=== PATIENT | female | born 1970 | race Caucasian/White ===

== ENCOUNTER 2016-11-20 20:52 | Emergency (ER) | payer BC ==
[2016-11-20 21:00] VITALS: BP 188/86; BMI 30.9
--- NOTE | 2016-11-20 21:28 | DR.GENAD ---
HPI - PCP Primary Care Physician: APOLONIA BLACK - Complaint/Symptoms Chief Complaint:: PT C/O LT FLANK PAIN SEEN IN [place] ON THRUSDAY HAD CT IT WAS NEGATIVE PT SAW HER DR NICHOLE DX WITH ENTERNAL SHINGLES PT C/O PAIN - Nurses notes reviewed Nurses Notes Review: Yes - Source History Provided: Patient - Mode of Arrival Mode of Arrival: Ambulatory - Timing Onset of Chief Complaint: 11/16/16 Came on: Suddenly - Duration Duration: Constant Duration: Days - Severity Severity: Moderate PMH - PMH Past Medical History: Yes Past Medical History: Diabetes, Dyslipidemia, Hypertension Past Surgical History: Yes Surgical History: Cholecystectomy, Hysterectomy, Ortho Surgery - Family History History of Family Medical Conditions: Yes Family Medical History: Diabetes Mellitus, Hypertension - Social History Type of Tobacco Use: None Does any household member use tobacco: No Alcohol Use: None Do you use any recreational Drugs:: No Lives With: Family Lives Where: Home - infectious screening In the last 2 months have you had wt loss of >10#?: NO Have you had fever, night sweats or hemotysis?: No Have you traveled outside the country in the last 6 months?: No Isolation: Standard PE - Vital Signs Vitals: Temperature 98 F Pulse Rate 86 Respiratory Rate 18 Blood Pressure 188/86 O2 Sat by Pulse Oximetry 100 - Discharge Plan Disposition: [facility] After Triage Condition: Stable - Follow ups/Referrals Follow ups/Referrals: NFD,None [Primary Care Provider] - 3 days - Instructions
== END 2016-11-20 23:19 | disposition left against medical advice (07) ==
LOC: ER 21:09
DX: R10.84 Generalized abdominal pain (principal)
CPT/HCPCS: 99281